=== PATIENT | male | born 1975 | race Caucasian/White ===

== ENCOUNTER → 2025-07-01 | Outpatient (CLI) | payer OTHER, SELFPAY ==
--- NOTE | 2025-07-01 14:35 | ECHOD_ITS ---
Reason For Study Reason For Study: SOB Procedure This was a 2D Doppler, Color Flow transthoracic echocardiogram. Exam performed in department. Left Ventricle Normal LV size. Left ventricular systolic function is normal. The left ventricular ejection fraction is 60 %. No regional wall motion abnormalities noted. Right Ventricle Normal RV size. Normal systolic function. Atria Normal left atrium. Normal right atrium. Mitral Valve Normal mitral valve. Tricuspid Valve Normal tricuspid valve. Mild (1+) tricuspid valve insufficiency. Pulmonary artery systolic pressure is 24 mmHg. Aortic Valve Trisinus/trileaflet aortic valve. Pulmonic Valve Normal pulmonic valve. Great Vessels Normal aortic root. The pulmonary artery is normal size. Inferior vena cava collapse with respiration. Pericardium/Pleural No pericardial effusion. MMode/2D Measurements & Calculations LVIDd: 4.3 cm IVSd: 1.00 cm CO(Teich): 2.4 l/min LVIDs: 2.5 cm LVPWd: 1.0 cm RVDd: 3.5 cm FS: 41.2 % Ao root diam: 3.8 cm LAV(MOD-bp): 52.8 ml LVAd ap4: 30.8 cm2 LAV(MOD-bp) Indexed: 23.1 ml/m2 LVLd ap4: 8.2 cm LAV(MOD-sp2): 51.2 ml EDV(MOD-sp4): 97.0 ml LAV(MOD-sp4): 51.4 ml EDV(sp4-el): 97.9 ml LVAs ap4: 17.4 cm2 LVLs ap4: 6.3 cm ESV(MOD-sp4): 40.0 ml ESV(sp4-el): 40.5 ml EF(MOD-sp4): 58.7 % EF(sp4-el): 58.6 % LVAd ap2: 27.6 cm2 CO(MOD-sp4): 2.2 l/min SV(MOD-sp2): 44.0 ml LVLd ap2: 8.5 cm SV(MOD-sp4): 57.0 ml SI(MOD-sp2): 19.3 ml/m2 EDV(MOD-sp2): 74.9 ml SI(MOD-sp4): 25.0 ml/m2 EDV(sp2-el): 76.2 ml LVAs ap2: 14.6 cm2 LVLs ap2: 6.2 cm ESV(MOD-sp2): 30.9 ml ESV(sp2-el): 29.4 ml EF(MOD-sp2): 58.8 % SV(sp4-el): 57.4 ml LA dimension(2D): 4.0 cm LA A4 area: 17.4 cm2 RA A4 area: 15.8 cm2 TAPSE: 3.0 cm Time Measurements MV dec time: 0.14 sec Doppler Measurements & Calculations MV E max samuel: 79.6 cm/sec Lat Peak E' Samuel: 7.7 cm/sec Med Peak E' Samuel: 9.9 cm/sec MV A max samuel: 70.7 cm/sec E/E' lat: 10.3 E/E' med: 8.1 MV E/A: 1.1 MV V2 max: 77.6 cm/sec MV P1/2t max samuel: 85.7 cm/sec Ao V2 max: 94.3 cm/sec MV max P.4 mmHg MV P1/2t: 38.6 msec Ao max P.6 mmHg MV V2 mean: 40.6 cm/sec Ao V2 mean: 65.2 cm/sec MV mean P.78 mmHg MV dec slope: 650.6 cm/sec2 Ao mean P.0 mmHg MV V2 VTI: 15.0 cm MVA(P1/2t): 5.7 cm2 Ao V2 VTI: 19.5 cm AV (velocity ratio): 0.89 LV V1 max: 80.9 cm/sec PA V2 max: 118.8 cm/sec TR max samuel: 230.0 cm/sec LV V1 max P.6 mmHg PA V2 mean: 83.2 cm/sec TR max P.2 mmHg LV V1 mean P.5 mmHg LV V1 mean: 58.6 cm/sec LV V1 VTI: 17.4 cm ECHO/Echo Complete Interpretation Summary Normal LV size. Left ventricular systolic function is normal. The left ventricular ejection fraction is 60 %. Pulmonary artery systolic pressure is 24 mmHg. Ordering Physician: Cherie Damon Referring Physician: Cherie Damon Performed By: Ruth Herron, RDCS, RVT
== END | disposition home or self-care (01) ==
PROVIDERS: PCP Internal Medicine; Referring Provider Internal Medicine; Visit Provider Internal Medicine
DX: R06.02 Shortness of breath (principal)
CPT/HCPCS: 93306